=== PATIENT | female | born 1950 | race Caucasian/White ===

== ENCOUNTER 2018-04-09 07:47 | Day surgery (SDC) | payer MEDICARE, BC ==
[2018-04-05 14:43] LABS: BASOPHILS # (AUTO) 0.1 X10'3 (0-0.2); BASOPHILS % (AUTO) 0.7 % (0-1); EOSINOPHILS # (AUTO) 0.3 X10'3 (0-0.9); EOSINOPHILS % (AUTO) 3.5 % (0-6); LYMPHOCYTES # (AUTO) 1.9 X10'3 (1.1-4.8); LYMPHOCYTES % (AUTO) 23.7 % (21-51); MEAN CORPUSCULAR HEMOGLOBIN 31.2 PG (27.0-31.0); MEAN CORPUSCULAR HGB CONC 33.5 % (33.0-36.5); MEAN PLATELET VOLUME 7.6 FL (7.4-10.4); MONOCYTES # (AUTO) 0.5 X10'3 (0-0.9); MONOCYTES % (AUTO) 5.8 % (2-12); NEUTROPHILS # (AUTO) 5.3 X10'3 (1.8-7.7); NEUTROPHILS % (AUTO) 66.3 % (42-75); PRE OP HEMATOCRIT 38.7 % (35.0-45.0); PRE OP PLATELET COUNT 278 X10'3 (140-440); RED BLOOD COUNT 4.16 X10'6 (4.20-5.60); RED CELL DISTRIBUTION WIDTH 13.4 % (11.5-14.5)
[2018-04-05 15:00] LABS: ALBUMIN 3.7 G/DL (3.4-5.0); ALBUMIN/GLOBULIN RATIO 1.2 (1.1-1.5); ALKALINE PHOSPHATASE 87 IU/L (46-116); BLOOD UREA NITROGEN 19 MG/DL (7-18); BUN/CREATININE RATIO 20.7 (6.6-38.0); CHLORIDE 106 MMOL/L (99-107); CREATININE 0.92 MG/DL (0.40-0.90); PRE OP ALT 20 U/L (30-65); PRE OP ANION GAP 7 (8-16); PRE OP AST 13 U/L (10-37); PRE OP BILIRUB, TOTAL 0.2 MG/DL (0.0-1.0); PRE OP GLUCOSE 95 MG/DL (70-104); PRE OP POTASSIUM 3.8 MMOL/L (3.4-5.1); PRE OP SODIUM 140 MMOL/L (135-145); TOTAL CARBON DIOXIDE 26.9 MMOL/L (24-32); TOTAL PROTEIN 6.8 G/DL (6.4-8.2); eGFR 61 ML/MIN
[~2018-04-09] VITALS: Ht 172.7 cm; Wt 79.4 kg
[~2018-04-09 07:47] MED LIST: AMIT50TA4 PO; IBUP100O20 PO; clindamycin 600mg/D5W 50ml 50 ML IV ONE; famotidine 20mg tablet PO ONE; ringers solution, lacted 1,000 ML IV ONE
[2018-04-09] MEDS ORDERED: acetaminophen 325mg tablet PO PRN (08:50)
[2018-04-09 09:24] VITALS: BP 140/99
[2018-04-09 09:27] VITALS: BP 140/99
[2018-04-09] MEDS ORDERED: ringers solution, lacted 1,000 ML IV SCH (10:21)
[2018-04-09] MEDS ORDERED: meperidine/PF 25mg/ml syringe IV PRN ×3 (10:25)
[2018-04-09] MEDS ORDERED: ondansetron/PF 4mg/2ml inj IV PRN (10:25)
[2018-04-09] MEDS ORDERED: proCHLORperazine 10 MG/2 ml inj IV PRN (10:25)
[2018-04-09] MEDS ORDERED: morphine 4 MG/ML inj SYRINge IV PRN ×2 (10:25)
[2018-04-09] MEDS ORDERED: LIDOcaine 0.5% (5mg/ml) 50ml vial ONE (10:43)
[2018-04-09] MEDS ORDERED: fentaNYL/PF 50MCG/1 ML 2ML syringe ONE (10:46)
[2018-04-09] MEDS ORDERED: midazolam 2 mg/2 ml injection ONE (10:46)
[2018-04-09] MEDS ORDERED: BUPIVAcaine/PF 7.5mg/ml (0.75%) 10ml vial ONE ×2 (11:07→11:44)
[2018-04-09] MEDS ORDERED: propofol inj 20 ML IV ONE ×2 (11:52)
[2018-04-09 11:55] VITALS: BP 140/94
[2018-04-09 12:05] VITALS: BP 170/101
[2018-04-09 12:15] VITALS: BP 152/96
[2018-04-09 12:25] VITALS: BP 154/81
== END 2018-04-09 12:35 | disposition home or self-care (01) ==
LOC: PAS 07:47
PROVIDERS: ATTEND Orthopaedic Surgery Hand Surgery
DX: G56.01 Carpal tunnel syndrome, right upper limb (principal); G56.21 Lesion of ulnar nerve, right upper limb; M65.331 Trigger finger, right middle finger; M18.11 Unilateral primary osteoarthritis of first carpometacarpal joint, right hand; G43.909 Migraine, unspecified, not intractable, without status migrainosus; M19.90 Unspecified osteoarthritis, unspecified site; Z79.1 Long term (current) use of non-steroidal anti-inflammatories (NSAID); Z88.0 Allergy status to penicillin; Z96.651 Presence of right artificial knee joint; Z79.2 Long term (current) use of antibiotics; Z87.891 Personal history of nicotine dependence; Z72.89 Other problems related to lifestyle; Z79.891 Long term (current) use of opiate analgesic; Z98.890 Other specified postprocedural states; Z79.899 Other long term (current) drug therapy
CPT/HCPCS: 25447; 26055; 36415; 64718; 64721; 80053; 85025; 93005; A4565; A6222; A6449; J2001; J2175; J2250; J2270; J2704; J3010; J3490; J7120; L8630